=== PATIENT | male | born 1970 | race Caucasian/White ===

== ENCOUNTER → 2016-10-20 | Outpatient (CLI) | payer OTHER ==
[~2016-10-20] MED LIST: CONTRAST GIVEN MC PRN; GADOBUTROL 7.5 MMOL/7.5 ML VIAL INT ART ONE; IOHEXOL 300 MG/ML 10ML VIAL. INT ART ONE; LIDOCAINE 1% Multi-Dose 20 ML VIAL. ID ONE
--- NOTE | 2016-10-20 16:12 | KCIC ---
LEFT SHOULDER ARTHROGRAM USING FLUOROSCOPY INDICATIONS: Left shoulder pain. PROCEDURE: The procedure and possible complications including bleeding and infection and allergic reaction were explained. The patient provided both verbal and written consent. A timeout was performed including confirming the name of the patient and the date of and the type of procedure and the side of the procedure. Allergic reactions were reviewed. The left shoulder was marked. The left shoulder was prepped with Chloraprep and draped in the usual sterile fashion. A total of 3 cc of 1% lidocaine was utilized for local anesthesia. Using sterile technique and fluoroscopic guidance, a 22 Gauge spinal needle was directed into the left glenohumeral joint from an anterior approach. 15 cc of a solution containing 10 cc of Omnipaque 300 and 10 cc of sterile normal saline and 0.2 cc of Gadovist was injected intra-articularly into the glenohumeral joint under fluoroscopic observation. Fluoroscopic spot view(s) were obtained confirming intra-articular position of the contrast. The needle was removed and hemostasis was deemed adequate. The patient tolerated the procedure well without complication. The patient was sent to the MRI suite for further imaging. Followup will be with the patient's physician. Total fluoroscopic time: 20 seconds. Total fluoroscopic spot view(s): 2. IMPRESSION: Fluoroscopic guided left shoulder arthrogram was performed as discussed above without complication. Electronically signed by: Antonio Ruiz MD (Oct 20, 2016 16:10:37)
--- NOTE | 2016-10-20 16:26 | KCIC ---
PROCEDURE MRI left shoulder arthrogram HISTORY Left shoulder impingement. Left shoulder pain. Limited range of motion. Popping for 4 months. TECHNIQUE After intra-articular injection of gadolinium, post arthrogram MRI sequences of the left shoulder were performed in all 3 planes. An additional ABER sequence was performed as well. COMPARISON None available. FINDINGS No extravasation of contrast material into the substance of the rotator cuff or into the subdeltoid or subacromial bursa is seen. Therefore, no partial articular surface tear or complete tear of the rotator cuff is seen. There is mild tendinosis of the supraspinatus tendon. There is mild tendinosis of the infraspinatus tendon. There are chronic cystic changes of the posterior lateral aspect of the humeral head secondary to chronic impingement. 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 There is spurring of the lateral inferior edge of the acromial process. A type 3 acromial process is seen. These findings may impinge the acromial humeral space. No other marrow infiltrative process is seen. No fracture or bone contusion is evident. No complete tear of subscapularis tendon is seen. The tendon of the long head of the biceps is intact. The glenoid labrum is intact. No paralabral ganglion cyst or spinoglenoid notch ganglion cyst is seen. The glenohumeral joint is unremarkable. No loose body is seen. IMPRESSION Tendinosis of the supraspinatus and infraspinatus tendons. No rotator cuff tear is seen. Impingement of the acromial humeral space. Electronically signed by: Antonio Ruiz MD (Oct 20, 2016 16:25:23)
== END | disposition home or self-care (01) ==
LOC: KCIC 14:00
PROVIDERS: ATTEND Family Medicine
DX: M25.812 Other specified joint disorders, left shoulder (principal)
CPT/HCPCS: 73040; 73222; Q9967; A9585

== ENCOUNTER 2017-04-19 15:13 | Emergency (ER) | payer OTHER ==
[~2017-04-19] VITALS: Ht 172.7 cm; Wt 113.4 kg
[2017-04-19 15:20] VITALS: BP 132/80
[2017-04-19 15:59] LABS: OBC FLU VALID
[2017-04-19 16:02] LABS: BASO % 1 % (0-3); EOS % 2 % (0-3); HEMATOCRIT 42.1 % (39.0-53.0); HEMOGLOBIN 14.7 g/dL (13.0-17.5); LYMPH # 1.3 x10^3/uL (1.0-4.8); LYMPH % 21 % (24-48); MEAN CORPUSCULAR HEMOGLOBIN 33 pg (25-35); MEAN CORPUSCULAR HGB CONC 35 g/dL (31-37); MEAN CORPUSCULAR VOLUME 95 fL (79-100); MONO % 16 % (0-9); NEUT % 60 % (31-73); PLATELET COUNT 153 x10^3/uL (140-400); RED BLOOD COUNT 4.46 x10^6/uL (4.30-5.70); RED CELL DISTRIBUTION WIDTH 13.2 % (11.5-14.5); WHITE BLOOD COUNT 6.1 x10^3/uL (4.0-11.0)
--- NOTE | 2017-04-19 16:02 | PHYS DOC ---
Past Medical History Past Medical History: High Cholesterol Past Surgical History: Tonsillectomy Additional Past Surgical Histo: BILATERAL KNEE SCOP, RT AC JOINT REPAIR Alcohol Use: Occasionally Drug Use: None Adult General Chief Complaint Chief Complaint: SYNCOPE HPI HPI 47-year-old male presenting to the emergency department after a presyncopal versus syncopal episode today. He reports feeling nauseous over the past few days having generalized myalgias and joint pains with nausea and chills. Today he woke up needing to urinate. He went to the restroom and suddenly felt nauseous flushed and possibly passed out. 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 He denies any palpitations prior to the event he denies headache. He denies numbness tingling or unilateral weakness. He denies slurring of speech or vision changes. Currently he doesn't have any symptoms. Onset today. Location generalized. Duration intermittent. No alleviating factors. Review of systems is negative for chest pain shortness of breath fevers chills abdominal pain. He denies headache. All other review of systems is negative unless otherwise noted in history of present illness. ED course: 47-year-old male presenting to the emergency department with a presyncopal/syncopal episode. Symptomatology consistent with vasovagal episode. Patient currently is asymptomatic. EKG obtained and reviewed by myself shows sinus rhythm with a regular rate. Nonspecific T-wave flattening in aVF and T wave inversion in lead 3. No delta wave. EKG not suggestive of WPW, QT is within normal limits, no evidence of Brugada, EKG not suggestive of HOCM. Blood work obtained. Influenza swab sent. Unremarkable workup. The patient was then discharged home in stable condition to follow up with their primary care physician over the next 2-3 days. They were to return if their symptoms worsened or if they were concerned for any reason. Dwgd-ow-deto discharge instructions and return precautions were given. Patient's questions were answered to their satisfaction. Patient is comfortable plan. Review of Systems Review of Systems SEE ABOVE. Allergies Allergies Allergies Coded Allergies Type Severity Reaction Last Updated Verified No Known Drug Allergies 10/20/16 No Physical Exam Physical Exam SEE ABOVE Constitutional: Well developed, well nourished, no acute distress, non-toxic appearance. HENT: Normocephalic, atraumatic, bilateral external ears normal, oropharynx moist, no oral exudates, nose normal. [] Eyes: PERRLA, EOMI, conjunctiva normal, no discharge. Neck: Normal range of motion, no tenderness, supple, no stridor. [] Cardiovascular:Heart rate regular rhythm, no murmur Lungs & Thorax: Bilateral breath sounds clear to auscultation Abdomen: Bowel sounds normal, soft, no tenderness, no masses, no pulsatile masses. [] Skin: Warm, dry, no erythema, no rash. Back: No tenderness, no CVA tenderness. [] Extremities: No tenderness, no cyanosis, no clubbing, ROM intact, no edema. Neurologic: Alert and oriented X 3, normal motor function, normal sensory function, no focal deficits noted. [] Psychologic: Affect normal, judgement normal, mood normal. [] Current Patient Data Vital Signs Vital Signs Date Time Temp Pulse Resp B/P (MAP) Pulse Ox O2 Delivery O2 Flow Rate FiO2 04/19/17 15:20 98.7 68 9 132/80 (97) 100 Room Air 98.7 Lab Values Laboratory Tests Test 04/19/17 15:31 04/19/17 15:55 Influenza Type A Antigen Negative (NEGATIVE) Influenza Type B Antigen Negative (NEGATIVE) White Blood Count 6.1 x10^3/uL (4.0-11.0) Red Blood Count 4.46 x10^6/uL (4.30-5.70) Hemoglobin 14.7 g/dL (13.0-17.5) Hematocrit 42.1 % (39.0-53.0) Mean Corpuscular Volume 95 fL (79-100) Mean Corpuscular Hemoglobin 33 pg (25-35) Mean Corpuscular Hemoglobin Concent 35 g/dL (31-37) Red Cell Distribution Width 13.2 % (11.5-14.5) Platelet Count 153 x10^3/uL (140-400) Neutrophils (%) (Auto) 60 % (31-73) Lymphocytes (%) (Auto) 21 % (24-48) L Monocytes (%) (Auto) 16 % (0-9) H Eosinophils (%) (Auto) 2 % (0-3) Basophils (%) (Auto) 1 % (0-3) Neutrophils # (Auto) 3.7 x10^3uL (1.8-7.7) Lymphocytes # (Auto) 1.3 x10^3/uL (1.0-4.8) Monocytes # (Auto) 1.0 x10^3/uL (0.0-1.1) Eosinophils # (Auto) 0.1 x10^3/uL (0.0-0.7) Basophils # (Auto) 0.0 x10^3/uL (0.0-0.2) Sodium Level 139 mmol/L (136-145) Potassium Level 4.4 mmol/L (3.5-5.1) Chloride Level 101 mmol/L (98-107) Carbon Dioxide Level 30 mmol/L (21-32) Anion Gap 8 (6-14) Blood Urea Nitrogen 13 mg/dL (8-26) Creatinine 1.1 mg/dL (0.7-1.3) Estimated GFR (Cockcroft-Gault) 72.1 BUN/Creatinine Ratio 12 (6-20) Glucose Level 97 mg/dL (70-99) Calcium Level 9.1 mg/dL (8.5-10.1) Total Bilirubin 1.1 mg/dL (0.2-1.0) H Aspartate Amino Transferase (AST) 34 U/L (15-37) Alanine Aminotransferase (ALT) 61 U/L (16-63) Alkaline Phosphatase 62 U/L (46-116) Troponin I Quantitative < 0.017 ng/mL (0.000-0.055) Total Protein 7.3 g/dL (6.4-8.2) Albumin 3.6 g/dL (3.4-5.0) Albumin/Globulin Ratio 1.0 (1.0-1.7) Lipase 95 U/L (73-393) Laboratory Tests 04/19/17 15:55 Laboratory Tests 04/19/17 15:55 EKG EKG [] Radiology/Procedures Radiology/Procedures [] Course & Med Decision Making Course & Med Decision Making Pertinent Labs and Imaging studies reviewed. (See chart for details) [] Dragon Disclaimer Dragon Disclaimer This electronic medical record was generated, in whole or in part, using a voice recognition dictation system. Departure Departure Impression: Primary Impression: Pre-syncope Additional Impression: Syncope Disposition: 01 HOME, SELF-CARE Condition: STABLE Referrals: NO PCP (PCP) JOSH FERGUSON MD Patient Instructions: Syncope, [id number] Additional Instructions: Thank you for allowing us to participate in your care today. Followup with your primary care physician in 3 days if your symptoms do not improve. Call your Primary Doctor tomorrow and inform them of your visit today. If you do not have a primary care provider you can ask for a list of our primary care providers. Return to the emergency department you have any new or concerning findings. This should be evaluated by the primary care physician and any necessary consulting services for continued management within a few days after discharge. Return to emergency room if you have any new or concerning symptoms including but not limited to fever, chills, nausea, vomiting, intractable pain, any new rashes, chest pain, shortness of air, uncontrolled bleeding, difficulty breathing, and/or vision loss. Scripts Ondansetron (ZOFRAN ODT) 4 Mg Tab.rapdis 1 TAB SL PRN Q8HRS Y for NAUSEA, #6 TAB Prov: SHLOMO RIVERA MD 04/19/17 Problem Qualifiers SHLOMO RIVERA MD Apr 19, 2017 16:02
[2017-04-19 16:15] LABS: CALCIUM 9.1 mg/dL (8.5-10.1); CREATININE 1.1 mg/dL (0.7-1.3); GFR 72.1; POTASSIUM 4.4 mmol/L (3.5-5.1)
[2017-04-19 16:21] LABS: ALBUMIN 3.6 g/dL (3.4-5.0); TOTAL BILIRUBIN 1.1 mg/dL (0.2-1.0); TOTAL PROTEIN 7.3 g/dL (6.4-8.2)
[2017-04-19] MEDS ORDERED: ONDA4TAB10 SL (17:22)
--- NOTE | 2017-04-20 06:17 | EKG ---
[facility] [address] [place] [address] Test Date: 2017-04-19 Test Time: 15:27:18 Pat Name: JOSH MARQUEZ Department: Room: Gender: M [employer]: : 1970 Requested By: SHLOMO RIVERA Order Number: [id number] Reading MD: Sahara Alva Measurements Intervals [place] Rate: 70 P: 39 IL: 134 QRS: 7 QRSD: 100 T: -5 QT: 368 QTc: 400 Interpretive Statements SINUS RHYTHM NORMAL EKG Electronically Signed On 04-20-2017 12:08:20 CDT by Sahara Alva
== END 2017-04-19 17:45 | disposition home or self-care (01) ==
LOC: ER 15:13
DX: R55 Syncope and collapse (principal); M79.1 Myalgia; R11.0 Nausea; E78.00 Pure hypercholesterolemia, unspecified
CPT/HCPCS: 36415; 80053; 83690; 84484; 85025; 87804; 93005; 99285-25